=== PATIENT | female | born 1990 | race African-American/Black ===

== ENCOUNTER → 2016-09-28 | Outpatient (CLI) | payer OTHER ==
--- NOTE | 2016-09-28 08:34 | REP ---
MAXILLOFACIAL CT WITHOUT CONTRAST: HISTORY: Chronic sinusitis. Minimal mucosal thickening is present in the right maxillary sinus. The remaining sinuses are clear. The osteomeatal units are patent. The middle and inferior nasal turbinates are partially paradoxical. There is satya bullosa of the middle nasal turbinates. There is mild deviation of the nasal septum to the left. A spur is present arising from the left side of the nasal septum. The nasal septum and spur abut the left inferior nasal turbinate. The cribriform plate and medial hernandez of the orbits and optic canals are intact. The carotid canals form a segment of the posterolateral hernandez of the sphenoid sinus. The sphenoid sinus septum inserts into the left internal carotid canal wall. IMPRESSION: Sinus mucosal thickening as described above. Signed by Kash Onofre MD 09/28/2016 08:41 A
== END ==
LOC: M RAD 07:37
PROVIDERS: ATTEND Otolaryngology
DX: J32.9 Chronic sinusitis, unspecified (principal)

== ENCOUNTER → 2016-12-06 | Outpatient (REF) | payer OTHER | LOC: M SFHCLERA 10:08 | PROVIDERS: ATTEND Family Medicine | DX: Z36 Encounter for antenatal screening of mother (principal); Z3A.01 Less than 8 weeks gestation of pregnancy ==

== ENCOUNTER → 2016-12-29 | Outpatient (CLI) | payer OTHER ==
[2016-12-29 14:26] LABS: BASO % 0.5 % (0.0-1.0); EOS % 0.8 % (0.0-3.0); LARGE UNSTAINED CELL # 0.1 K/mm3 (0.0-0.4); LARGE UNSTAINED CELL % 1.9 % (0.0-4.0); LYMPH # 1.7 K/mm3 (1.5-6.5); LYMPH % 26.9 % (24.0-44.0); MEAN CORPUSCULAR HEMOGLOBIN 28.9 pg (27.0-33.0); MEAN CORPUSCULAR HGB CONC 33.2 g/dl (32.0-36.5); MEAN CORPUSCULAR VOLUME 87.1 fl (80.0-96.0); MONO # 0.5 K/mm3 (0.0-0.8); MONO % 7.1 % (0.0-5.0); NEUTROPHILS # 4.1 K/mm3 (1.8-7.7); NEUTROPHILS % 62.8 % (36.0-66.0); PLATELET COUNT, AUTOMATED 227 k/mm3 (150-450); RED CELL DISTRIBUTION WIDTH 12.3 % (11.5-14.5); WHITE BLOOD COUNT 6.5 K/mm3 (4.0-10.0)
[2016-12-30 10:11] LABS: HBsAg Prenatal NEGATIVE (NEGATIVE)
== END ==
LOC: M SMT 10:20
PROVIDERS: ATTEND Obstetrics & Gynecology
DX: Z34.81 Encounter for supervision of other normal pregnancy, first trimester (principal)

== ENCOUNTER → 2017-02-06 | Outpatient (CLI) | payer OTHER ==
--- NOTE | 2017-02-07 00:54 | REP ---
Clinical: Dating and viability. Technique: Transabdominal first trimester obstetrical ultrasound with color Doppler evaluation Findings: Single live early intrauterine is appreciated. Gestational sac with early fetus identified. Current biometrical measurements corresponds to 14 weeks 1 day gestational age with estimated date of delivery 08/06/2017 . heart rate equals 157 beats per minute. No gross abnormalities are identified. Placenta identified posteriorly and grade zero without previa. Impression: Single live early intrauterine at 14 weeks 1 day gestational age. Complete anatomical assessment should be performed and 19-20 weeks. Signed by Steffen Jara MD 02/07/2017 12:45 A
== END ==
LOC: M RAD 14:35
PROVIDERS: ATTEND Advanced Practice Midwife
DX: Z34.81 Encounter for supervision of other normal pregnancy, first trimester (principal)

== ENCOUNTER → 2017-02-20 | Outpatient (CLI) | payer OTHER | LOC: M SMT 14:58 | PROVIDERS: ATTEND Obstetrics & Gynecology | DX: Z31.438 Encounter for other genetic testing of female for procreative management (principal) ==

== ENCOUNTER → 2017-03-14 | Outpatient (CLI) | payer OTHER ==
--- NOTE | 2017-03-14 16:33 | REP ---
Obstetric sonography: History: Supervision of , for anatomy. Findings: Scanning through the gravid uterus demonstrates a viable single intrauterine gestation in a cephalic lie. motion is observed and heart rate is recorded at 156 beats per minute. A posterior grade 1 placenta is seen without evidence of previa or abruption. Amniotic fluid is subjectively normal. Closed cervical length measures 3.1 cm transabdominally. No extrauterine abnormalities observed. There has been appropriate interval growth. No anomaly is seen. An echogenic focus is seen in the left ventricle likely chordae tendineae. The following additional anatomic structures are identified and felt to be sonographically unremarkable: cranium, choroid plexus, cavum, cerebellum and posterior fossa, face and profile, lungs, four-chamber heart with left and right ventricular outflow tract views, diaphragm, left-sided stomach, abdominal wall cord insertion, three-vessel umbilical cord, kidneys and bladder, spine, upper and lower extremities. Biometry chart: BPD 4.2 cm = 18 weeks 5 days HC 15.8 cm = 18 weeks 5 days AC 13.9 cm = 19 weeks 2 days FL 2.9 cm = 18 weeks 6 days HL 2.7 cm = 18 weeks 4 days HC/AC ratio normal 0.73. Estimated weight 272 grams, 0 pounds 9 ounces, 35th percentile for 19 weeks 3 days. Impression: Viable single intrauterine gestation at 18 weeks 6 days by today's composite sonographic criteria. Expected gestational age estimate based on prior sonography is 19 weeks 2 days. BUFFY by prior sonography is August 06, 2017. No anomalies seen. There is an echogenic focus in the left ventricle. Signed by Camron Agrawal MD 03/14/2017 05:01 P
== END ==
LOC: M RAD 11:58
PROVIDERS: ATTEND Obstetrics & Gynecology
DX: Z34.82 Encounter for supervision of other normal pregnancy, second trimester (principal)

== ENCOUNTER → 2017-04-25 | Outpatient (CLI) | payer OTHER ==
[2017-04-25 18:22] LABS: MEAN CORPUSCULAR HEMOGLOBIN 28.5 pg (27.0-33.0); MEAN CORPUSCULAR HGB CONC 32.6 g/dl (32.0-36.5); MEAN CORPUSCULAR VOLUME 87.3 fl (80.0-96.0); RED CELL DISTRIBUTION WIDTH 13.1 % (11.5-14.5); WHITE BLOOD COUNT 6.7 10^3/uL (4.0-10.0)
== END ==
LOC: M SMT 13:18
PROVIDERS: ATTEND Obstetrics & Gynecology
DX: Z34.82 Encounter for supervision of other normal pregnancy, second trimester (principal)

== ENCOUNTER → 2017-07-13 | Outpatient (REF) | payer OTHER | LOC: M LAB REF 17:10 | PROVIDERS: ATTEND Specialist | DX: Z34.83 Encounter for supervision of other normal pregnancy, third trimester (principal) ==

== ENCOUNTER 2017-08-15 12:43 | Inpatient (IN) | payer OTHER ==
[2017-08-15 14:28] LABS: HEMATOCRIT 39.5 % (36.0-47.0); HEMOGLOBIN 12.7 g/dl (12.0-16.0); MEAN CORPUSCULAR HEMOGLOBIN 26.8 pg (27.0-33.0); MEAN CORPUSCULAR HGB CONC 32.2 g/dl (32.0-36.5); MEAN CORPUSCULAR VOLUME 83.5 fl (80.0-96.0); PLATELET COUNT, AUTOMATED 174 10^3/uL (150-450); RED BLOOD COUNT 4.73 10^6/uL (4.00-5.40); RED CELL DISTRIBUTION WIDTH 13.5 % (11.5-14.5)
[2017-08-15 14:38] LABS: AMPHETAMINES URINE REFLEX NEGATIVE (NEGATIVE); BARBITURATES URINE REFLEX NEGATIVE (NEGATIVE); BENZODIAZEPINES URINE REFLEX NEGATIVE (NEGATIVE); CANNABINOIDS URINE REFLEX NEGATIVE (NEGATIVE); COCAINE METABOLITE URINE REFLE NEGATIVE (NEGATIVE); METHADONE URINE REFLEX NEGATIVE (NEGATIVE); OPIATES URINE REFLEX NEGATIVE (NEGATIVE); PHENCYCLIDINE URINE REFLEX NEGATIVE (NEGATIVE)
[2017-08-15] MEDS ORDERED: LR 1,000 ML IV (19:11)
[2017-08-15] MEDS ORDERED: OXYTOCIN DRIP 30 UNITS in APPROPRIATE DILUENT 1 EA IV (19:15)
[2017-08-15] MEDS ORDERED: FENTANYL 2MCG/ML ROPIVACAINE 0.2% IN 0.9% NACL 200ML IVBAG As Ordered (19:23)
[2017-08-16] MEDS ORDERED: ONDANSETRON 4MG/2ML VIAL (J2405) IV (00:15)
[2017-08-16] MEDS ORDERED: ePHEDrine SULFATE 25 MG/5 ML(5MG/ML) SYRINGE IV (00:15)
[2017-08-16] MEDS ORDERED: NALOXONE INJ 0.4 MG/1 ML VIAL (J2310) IV (00:15)
[2017-08-16] MEDS ORDERED: diphenhydrAMINE INJ 50MG/ML VIAL (J1200) IV (00:15)
[2017-08-16] MEDS ORDERED: FENTANYL/ROPIVACAINE/NACL BAG 200 ML EPIDURAL (00:15)
[2017-08-16] MEDS ORDERED: REFRIGERATOR IV KEYS XX (00:15)
[2017-08-16] MEDS ORDERED: EPIDURAL COMMENT XX (00:15)
[2017-08-16] MEDS ORDERED: EPIDURAL/PCA KEYS XX (00:15)
[2017-08-16] MEDS ORDERED: LACTATED RINGER'S 1000 ML IV (00:15)
[2017-08-16 03:11] LABS: CORD GAS ABE A -6.2; CORD GAS HCO3 A 23.2 MEQ/L; CORD GAS O2 SAT A 37.4 %; CORD GAS PCO2 A 61.2 mmHg; CORD GAS PH A 7.196 UNITS; CORD GAS PO2 A 20.2 mmHg
[2017-08-16 03:13] LABS: CORD GAS ABE V -7.4; CORD GAS HCO3 V 20.3 MEQ/L; CORD GAS O2 SAT V 66.2 %; CORD GAS PCO2 V 48.5 mmHg; CORD GAS PH V 7.239 UNITS; CORD GAS PO2 V 29.2 mmHg; CORD GAS SBC V 17.8 MEQ/L; CORD GAS TCO2 V 21.8 MEQ/L
[2017-08-16] MEDS ORDERED: METHYLERGONOVINE MALEATE 0.2 MG TAB PO (03:45)
[2017-08-16] MEDS ORDERED: DIBUCAINE 1% OINTMENT 30GM TOP (03:45)
[2017-08-16] MEDS: LACTATED RINGER'S 1000 ML IV (06:15)
[2017-08-16] MEDS: OXYTOCIN DRIP 30 UNITS in APPROPRIATE DILUENT 1 EA IV (06:16)
[2017-08-16] MEDS: PRENATAL VITAMINS CHEWABLE TABLET PO (08:22)
[2017-08-16] MEDS: IBUPROFEN 800 MG TAB PO ×2 (14:33→22:58)
[2017-08-16] MEDS: MEASLES,MUMPS,RUBELLA VACCINE INJ (MMR-II) (90707) SC (17:53)
[2017-08-16] MEDS: RHOGAM 300 MCG (1500 IU) INJ (J2790) IM (17:53)
[2017-08-16] MEDS: ACETAMINOPHEN 500 MG TAB PO (18:00)
[2017-08-16] MEDS: DOCUSATE SODIUM 100 MG CAP PO (22:58)
[2017-08-17] MEDS: PRENATAL VITAMINS CHEWABLE TABLET PO (08:05)
[2017-08-17] MEDS: ACETAMINOPHEN 500 MG TAB PO (08:05)
[2017-08-17] MEDS: IBUPROFEN 800 MG TAB PO (12:45)
== END 2017-08-17 13:30 | disposition home or self-care (01) | DRG 775 ==
LOC: M LDI 12:43 → M OBS 08-16 06:05
PROC: 10E0XZZ Delivery of Products of Conception, External Approach (ICD-10-PCS; principal; 2017-08-16)
PROC: 10907ZC Drainage of Amniotic Fluid, Therapeutic from Products of Conception, Via Natural or Artificial Opening (ICD-10-PCS; 2017-08-16)
DX: O48.0 Post-term pregnancy (principal); Z37.0 Single live birth; Z3A.41 41 weeks gestation of pregnancy

== ENCOUNTER → 2018-01-24 | Outpatient (REF) | payer OTHER ==
[2018-01-24 23:19] LABS: CHLAMYDIA DNA AMPLIFICATION NEGATIVE (NEGATIVE); GC DNA AMPLIFICATION NEGATIVE (NEGATIVE)
== END ==
LOC: M LAB REF 19:14
DX: M54.5 Low back pain (principal)
CPT/HCPCS: 87086

== ENCOUNTER → 2018-01-24 | Outpatient (CLI) | payer OTHER | LOC: M WUC 17:46 | DX: Z11.3 Encounter for screening for infections with a predominantly sexual mode of transmission (principal) | CPT/HCPCS: 36415 ==

== ENCOUNTER → 2018-05-01 | Outpatient (REF) | payer OTHER | LOC: M LAB REF 16:31 | DX: J02.9 Acute pharyngitis, unspecified (principal) ==

== ENCOUNTER → 2018-10-11 | Outpatient (CLI) | payer OTHER ==
[~2018-10-11] MED LIST: EVEN500C2 PO; IBUP-1114 PO; MAPA500T2 PO; PRENTAB9 PO; TUMS500C PO
--- NOTE | 2018-10-12 02:32 | REP ---
Clinical: Pain Technique: AP, lateral, bilateral oblique views right hand . Findings: The osseous structures and joint spaces are intact and normal. There is no evidence for acute fracture or dislocation. Surrounding soft tissues are unremarkable. No subcutaneous emphysema or radiodense foreign body. Impression: Normal right hand series . No acute fracture or dislocation. Electronically Signed by Steffen Jara MD 10/12/2018 02:24 A
== END ==
LOC: M LRY 11:22
PROVIDERS: ATTEND Family Medicine
DX: M79.644 Pain in right finger(s) (principal)
CPT/HCPCS: 73130; G0463

== ENCOUNTER → 2018-11-01 | Outpatient (REF) | payer OTHER | LOC: M LAB REF 13:40 | PROVIDERS: ATTEND Advanced Practice Midwife | DX: Z12.4 Encounter for screening for malignant neoplasm of cervix (principal) ==

== ENCOUNTER → 2018-11-05 | Outpatient (CLI) | payer OTHER ==
--- NOTE | 2018-11-05 17:07 | REP ---
Maxillofacial CT study without contrast: History: Chronic pansinusitis. Comparison study September 28, 2016. CT findings: The frontal sinuses are completely opacified bilaterally. There is moderate opacification of the ethmoid air cells anteriorly bilaterally. There is extensive opacification of the maxillary sinuses bilaterally. These changes are all much more pronounced or new when compared with the September 2016 study. The sphenoid and mastoid air cells are clear. There is no evidence of middle ear opacification on either side. The bony nasal septum deviates somewhat to the left without a visible beak. Nasal turbinate soft tissues are unremarkable. No nasal polyp is appreciated. The ostiomeatal complexes are bilaterally obscured by mucosal thickening. Impression: Agnes sinusitis changes as above. Much more pronounced than on the September 28, 2016 study. Electronically Signed by Camron Agrawal MD 11/05/2018 05:42 P
== END ==
LOC: M RAD 14:48
PROVIDERS: ATTEND Otolaryngology
DX: J32.4 Chronic pansinusitis (principal)

== ENCOUNTER 2018-12-31 06:29 | Day surgery (SDC) | payer OTHER ==
[~2018-12-31] VITALS: Ht 160 cm; Wt 73.0 kg
[~2018-12-31 06:29] MED LIST changes: +DEPO150I IM; +LIDOCAINE 1% MDV 20ML VIAL SQ PRN; +PAXI20TA29 PO; +RISP0.253 PO
[2018-12-31] MEDS ORDERED: LR 1,000 ML IV ONE (06:30)
[2018-12-31 07:07] LABS: URINE PREG TEST NEGATIVE (NEGATIVE)
[2018-12-31] MEDS ORDERED: BUPIVACAINE/EPIN 0.5% 30 ML VIAL As Ordered ONE (07:14)
[2018-12-31] MEDS ORDERED: LIDOCAINE W/EPINEPHRINE 1% 20ML VIAL As Ordered ONE (07:14)
[2018-12-31] MEDS ORDERED: PROPOFOL 200 MG/20 ML VIAL As Ordered ONE (07:17)
[2018-12-31] MEDS ORDERED: ROCURONIUM BROMIDE 50 MG/5 ML VIAL As Ordered ONE (07:17)
[2018-12-31] MEDS ORDERED: LIDOCAINE 2% INJ 100 MG/5 ML SDV (FOR ANES.) As Ordered ONE (07:17)
[2018-12-31] MEDS ORDERED: fentaNYL 250 MCG/5 ML INJECTION (J3010) As Ordered ONE (07:18)
[2018-12-31] MEDS ORDERED: MIDAZOLAM INJ 2 MG/2 ML VIAL (J2250) As Ordered ONE (07:18)
[2018-12-31] MEDS ORDERED: SUGAMMADEX SODIUM 500 MG/5 ML VIAL (BRIDION) As Ordered ONE (07:44)
[2018-12-31] MEDS ORDERED: KETOROLAC 60 MG/2 ML VIAL (J1885) As Ordered ONE (07:45)
[2018-12-31] MEDS ORDERED: dexameTHASONE 4 MG/ML 1ML VIAL (J1100) As Ordered ONE (07:45)
[2018-12-31] MEDS ORDERED: ONDANSETRON 4MG/2ML VIAL (J2405) As Ordered ONE (07:45)
[2018-12-31] MEDS ORDERED: PROMETHAZINE INJ 25 MG/ML VIAL (J2550) IV PRN (08:30)
[2018-12-31] MEDS ORDERED: ACETAMINOPH W/CODEINE #3 TAB UD PO PRN (08:30)
[2018-12-31] MEDS ORDERED: LR 1,000 ML IV SCH (08:30)
[2018-12-31] MEDS ORDERED: fentaNYL 100 MCG/2 ML INJECTION (J3010) IV PRN (08:30)
[2018-12-31] MEDS ORDERED: METOCLOPRAMIDE INJ 10MG/2ML VIAL (J2765) IV PRN (08:30)
[2018-12-31] MEDS ORDERED: oxyCODONE 5MG TAB PO PRN (08:30)
[2018-12-31 09:54] VITALS: BP 120/76
--- NOTE | 2018-12-31 10:57 | RO ---
DATE OF PROCEDURE: 12/31/2018 PREPROCEDURE DIAGNOSIS: Chronic tonsillitis. POSTPROCEDURE DIAGNOSIS: Chronic tonsillitis. OPERATIVE PROCEDURE: Tonsillectomy. SURGEON: Guerrero Musa MD [employer] PROFESSIONAL: ANESTHESIA: DESCRIPTION OF PROCEDURE: Under general anesthesia with the patient intubated, a Jiang-Fuentes mouth gag was inserted. The tonsil area was infiltrated with lidocaine, epinephrine and Marcaine. Using cautery, I dissected the tonsil free from its bed on both sides. The base and apex and other areas were cauterized. The patient tolerated the procedure well. No blood loss. Patient was extubated and transferred to the recovery room in excellent condition.
== END 2018-12-31 09:58 | disposition home or self-care (01) ==
LOC: M SDC 06:29
PROVIDERS: ATTEND Otolaryngology
DX: J35.01 Chronic tonsillitis (principal); K21.9 Gastro-esophageal reflux disease without esophagitis; F41.9 Anxiety disorder, unspecified; F32.9 Major depressive disorder, single episode, unspecified; Z79.899 Other long term (current) drug therapy; F17.210 Nicotine dependence, cigarettes, uncomplicated
CPT/HCPCS: 42826; 84703; 88302; J1100; J1885; J2250; J2405; J2765; J3010